=== PATIENT | female | born 1935 | race Caucasian/White ===

== ENCOUNTER 2020-03-21 17:59 | Inpatient (IN) ==
[2020-03-21] MEDS ORDERED: NS 0.9% 1000 ml BAG 1,000 ML IV ONE (18:08)
[2020-03-21] MEDS ORDERED: Ondansetron 4 mg VIAL 2 MG/ML 2 ml VIAL IV ONE ×2 (18:25→23:40)
[2020-03-21 18:58] LABS: ABS Basophils 0.1 10^3/ul (0-0.2); ABS Eosinophils 0.1 10^3/ul (0-0.6); ABS Lymphocytes 1.3 10^3/ul (1.0-4.8); ABS Monocytes 0.5 10^3/ul (0-0.8); ABS Neutrophils 10.1 10^3/ul (1.5-7.7); Eosinophil % 0.5 %; Hematocrit 40 % (35-47); Hemoglobin 13.1 g/dL (12.0-16.0); Lymphocyte % 10.7 %; Mean Corpuscular HGB Conc 33 g/dL (31-36); Mean Corpuscular Hemoglobin 29 pg (27-31); Mean Corpuscular Volume 86 fL (80-97); Mean Platelet Volume 6.8 fL (7.4-10.4); Platelet Count 511 10^3/uL (150-450); Red Blood Count 4.59 10^6 /uL (3.70-4.87); Red Cell Distribution Width 15 % (10-15)
[2020-03-21 19:06] LABS: Activated Partial Thrombo Time 30.2 seconds (26.0-38.0); INR 0.99 (0.82-1.09)
[2020-03-21 19:10] LABS: Influenza A Molecular Negative (Negative); Influenza B Molecular Negative (Negative)
[2020-03-21 19:16] LABS: BUN/Creatinine Ratio 12.4 (8-20); C Reactive Protein 11.42 mg/L (<8.01); Calcium 9.5 mg/dL (8.6-10.3); EGFR African American 65.9 (>60); EGFR Non-African American 54.5 (>60); Globulin 4.1 g/dL (2-4); Potassium 4.1 mmol/L (3.5-5.0); Total Bilirubin 0.4 mg/dL (0.2-1.0); Total Protein 8.1 g/dL (6.4-8.9)
[2020-03-21 19:17] LABS: Troponin I 0.02 ng/mL (<0.03)
[2020-03-21 19:22] LABS: Urine Appearance Clear; Urine Bilirubin Negative (Negative); Urine Blood Negative (Negative); Urine Color Straw; Urine Glucose Negative (Negative); Urine Ketones Negative (Negative); Urine Nitrite Negative (Negative); Urine Protein Negative (Negative); Urine Specific Gravity 1.008 (1.010-1.030); Urine Urobilinogen Negative (Negative)
[2020-03-21] MEDS ORDERED: Iodixanol (CONTRAST) 320 MG/ML 100 ML SDV IV ONE (23:52)
[2020-03-22 00:49] LABS: Magnesium 1.6 mg/dL (1.9-2.7)
[2020-03-22 01:03] LABS: TSH Ultra Thyroid Stim Horm 0.83 mcIU/mL (0.34-5.60)
[2020-03-22 01:31] LABS: ABS Basophils 0.1 10^3/ul (0-0.2); ABS Lymphocytes 1.3 10^3/ul (1.0-4.8); ABS Monocytes 0.6 10^3/ul (0-0.8); ABS Neutrophils 7.9 10^3/ul (1.5-7.7); Eosinophil % 0.1 %; Hematocrit 39 % (35-47); Hemoglobin 13.3 g/dL (12.0-16.0); Lymphocyte % 13.4 %; Mean Corpuscular HGB Conc 34 g/dL (31-36); Mean Corpuscular Hemoglobin 30 pg (27-31); Mean Corpuscular Volume 86 fL (80-97); Mean Platelet Volume 6.9 fL (7.4-10.4); Platelet Count 466 10^3/uL (150-450); Red Blood Count 4.51 10^6 /uL (3.70-4.87); Red Cell Distribution Width 15 % (10-15); White Blood Count 9.9 10^3/uL (3.5-10.8)
[2020-03-22] MEDS ORDERED: Labetalol IV 5 MG/ML 20 ml VIAL IV PUSH ONE (01:31)
[2020-03-22] MEDS ORDERED: Magnesium Sulf 4 GM/100 ML IV 4,000 MG/100 ML BAG IVPB ONE (01:35)
[2020-03-22 01:48] LABS: Anion Gap 6 mmol/L (2-11); BUN/Creatinine Ratio 11.6 (8-20); Blood Urea Nitrogen 10 mg/dL (6-24); CO2 Carbon Dioxide 27 mmol/L (22-32); Calcium 8.3 mg/dL (8.6-10.3); Chloride 99 mmol/L (101-111); EGFR African American 75.7 (>60); EGFR Non-African American 62.6 (>60); Glucose 111 mg/dL (70-100); Sodium 132 mmol/L (135-145)
[2020-03-22 01:57] LABS: Troponin I 0.05 ng/mL (<0.03)
[2020-03-22 04:55] LABS: Troponin I 0.03 ng/mL (<0.03)
[2020-03-22] MEDS: Heparin 5000 UNITS/ML 1 mL VIAL SUBCUT SCH ×3 (05:34→21:43)
[2020-03-22] MEDS: PTO:FLUTICASONE/UMECLIDIN/VILANTER 1 PUFF MDI INH SCH (07:04)
[2020-03-22] MEDS: Aspirin EC 325 mg TAB.EC PO SCH (09:30)
[2020-03-22] MEDS ORDERED: NS 0.9% 1000 ml BAG 1,000 ML IV SCH (11:45)
[2020-03-22] MEDS: Ondansetron 4 mg VIAL 2 MG/ML 2 ml VIAL IV PRN (17:41)
[2020-03-23] MEDS: Ondansetron 4 mg VIAL 2 MG/ML 2 ml VIAL IV PRN (00:55)
[2020-03-23] MEDS: Heparin 5000 UNITS/ML 1 mL VIAL SUBCUT SCH ×3 (05:41→20:36)
[2020-03-23 06:16] LABS: ABS Basophils 0.1 10^3/ul (0-0.2); ABS Eosinophils 0.1 10^3/ul (0-0.6); ABS Lymphocytes 1.6 10^3/ul (1.0-4.8); ABS Monocytes 0.7 10^3/ul (0-0.8); ABS Neutrophils 5.9 10^3/ul (1.5-7.7); Eosinophil % 0.8 %; Hematocrit 36 % (35-47); Hemoglobin 12.1 g/dL (12.0-16.0); Lymphocyte % 18.8 %; Mean Corpuscular HGB Conc 34 g/dL (31-36); Mean Corpuscular Hemoglobin 29 pg (27-31); Mean Corpuscular Volume 87 fL (80-97); Mean Platelet Volume 6.8 fL (7.4-10.4); Platelet Count 493 10^3/uL (150-450); Red Blood Count 4.19 10^6 /uL (3.70-4.87); Red Cell Distribution Width 15 % (10-15); White Blood Count 8.3 10^3/uL (3.5-10.8)
[2020-03-23 06:32] LABS: BUN/Creatinine Ratio 14.7 (8-20); Calcium 8.6 mg/dL (8.6-10.3); EGFR African American 57.6 (>60); EGFR Non-African American 47.6 (>60); Potassium 4.4 mmol/L (3.5-5.0)
[2020-03-23] MEDS: PTO:FLUTICASONE/UMECLIDIN/VILANTER 1 PUFF MDI INH SCH (08:36)
[2020-03-23] MEDS ORDERED: Albuterol/Ipratropium NEB.SOL (2.5/0.5 MG) 3 ML NEB.SOLN INH PRN (10:29)
[2020-03-23] MEDS: Aspirin EC 325 mg TAB.EC PO SCH (11:16)
[2020-03-23] MEDS ORDERED: Lactated Ringers 1000 ml BAG 1,000 ML IV ONE (14:30)
[2020-03-24] MEDS: Heparin 5000 UNITS/ML 1 mL VIAL SUBCUT SCH ×2 (05:49→14:28)
[2020-03-24 06:32] LABS: ABS Basophils 0.1 10^3/ul (0-0.2); ABS Eosinophils 0.1 10^3/ul (0-0.6); ABS Lymphocytes 1.5 10^3/ul (1.0-4.8); ABS Monocytes 0.7 10^3/ul (0-0.8); ABS Neutrophils 5.9 10^3/ul (1.5-7.7); Eosinophil % 1.6 %; Hematocrit 37 % (35-47); Hemoglobin 12.3 g/dL (12.0-16.0); Lymphocyte % 17.9 %; Mean Corpuscular HGB Conc 33 g/dL (31-36); Mean Corpuscular Hemoglobin 29 pg (27-31); Mean Corpuscular Volume 87 fL (80-97); Mean Platelet Volume 7.1 fL (7.4-10.4); Platelet Count 458 10^3/uL (150-450); Red Blood Count 4.23 10^6 /uL (3.70-4.87); Red Cell Distribution Width 15 % (10-15); White Blood Count 8.3 10^3/uL (3.5-10.8)
[2020-03-24 06:51] LABS: BUN/Creatinine Ratio 14.3 (8-20); Calcium 8.7 mg/dL (8.6-10.3); EGFR African American 70.9 (>60); EGFR Non-African American 58.6 (>60); Potassium 4.1 mmol/L (3.5-5.0)
[2020-03-24] MEDS: Aspirin EC 325 mg TAB.EC PO SCH (08:32)
[2020-03-24] MEDS: PTO:FLUTICASONE/UMECLIDIN/VILANTER 1 PUFF MDI INH SCH (08:39)
[2020-03-24] MEDS ORDERED: Heparin 5000 UNITS/ML 1 mL VIAL SUBCUT SCH (18:31)
[2020-03-24] MEDS ORDERED: Heparin 5000 UNITS/ML 1 mL VIAL ONE (19:53)
[2020-03-25 06:07] LABS: ABS Basophils 0.1 10^3/ul (0-0.2); ABS Eosinophils 0.2 10^3/ul (0-0.6); ABS Lymphocytes 1.7 10^3/ul (1.0-4.8); ABS Monocytes 0.9 10^3/ul (0-0.8); ABS Neutrophils 5.5 10^3/ul (1.5-7.7); Hematocrit 36 % (35-47); Lymphocyte % 20.5 %; Mean Corpuscular HGB Conc 34 g/dL (31-36); Mean Corpuscular Hemoglobin 29 pg (27-31); Mean Corpuscular Volume 87 fL (80-97); Mean Platelet Volume 7.2 fL (7.4-10.4); Platelet Count 464 10^3/uL (150-450); Red Cell Distribution Width 15 % (10-15); White Blood Count 8.3 10^3/uL (3.5-10.8)
[2020-03-25 06:26] LABS: BUN/Creatinine Ratio 20.2 (8-20); Calcium 8.9 mg/dL (8.6-10.3); EGFR African American 64.4 (>60); EGFR Non-African American 53.2 (>60)
[2020-03-25] MEDS: PTO:FLUTICASONE/UMECLIDIN/VILANTER 1 PUFF MDI INH SCH (08:27)
[2020-03-25] MEDS: Aspirin EC 325 mg TAB.EC PO SCH (09:16)
[2020-03-25] MEDS ORDERED: Midazolam 2 mg/2 ml VIAL 1 mg/ml 2 ml VIAL (2 mg) ONE (09:33)
[2020-03-25] MEDS ORDERED: fentaNYL 250 mcg/5 ml 50 MCG/ML 5 ml VIAL (250 MCG) ONE (09:33)
[2020-03-25] MEDS ORDERED: Lidocaine 2% PF 5 ML VIAL ONE ×2 (09:33→14:15)
[2020-03-25] MEDS ORDERED: Propofol 10 MG/ML 20 ML BTL ONE (09:33)
[2020-03-25] MEDS ORDERED: Rocuronium 50 mg VIAL 10 mg/ml 5 ml VIAL (50 mg) ONE (09:34)
[2020-03-25] MEDS ORDERED: Remifentanil 2 MG VIAL ONE (10:11)
[2020-03-25] MEDS ORDERED: Famotidine IV 10 MG/ML 2 ml VIAL (20 mg) IV SLOW PU ONE (10:33)
[2020-03-25] MEDS ORDERED: Sodium Citrate/Citric Acid LIQ 15 ML UDC PO ONE (10:33)
[2020-03-25] MEDS ORDERED: EPHEDrine (Pressors) 50 MG/ML VIAL ONE (11:40)
[2020-03-25] MEDS ORDERED: Sodium Citrate/Citric Acid LIQ 15 ML UDC ONE (12:47)
[2020-03-25] MEDS ORDERED: Famotidine IV 10 MG/ML 2 ml VIAL (20 mg) ONE (12:47)
[2020-03-25] MEDS ORDERED: Benzocaine/Butamben/Tetracain (CETACAINE - SINGLE USE) 5 gm TOPICAL ONE (12:52)
[2020-03-25] MEDS ORDERED: Acetaminophen IV 1 GM/100ML 1,000 MG/100 ML VIAL IVPB PRN (13:57)
[2020-03-25] MEDS ORDERED: Naloxone 0.4 mg VIAL 0.4 mg/ml 1 ml VIAL IV PRN (13:57)
[2020-03-25] MEDS ORDERED: HYDROmorphone 1 MG/1 ML SYRINGE IV PRN (13:57)
[2020-03-25] MEDS ORDERED: fentaNYL 100 mcg/2 ml 50 MCG/ML VIAL IV PRN (13:57)
[2020-03-25] MEDS ORDERED: Metoprolol Tartrate 5 mg VIAL 5 ml VIAL (1 mg/ml) ONE (15:13)
[2020-03-25] MEDS ORDERED: Metoprolol Tartrate 5 mg VIAL 5 ml VIAL (1 mg/ml) IV PRN (15:24)
[2020-03-25] MEDS ORDERED: Benzocaine/Menthol LOZ PO PRN (15:24)
[2020-03-25] MEDS ORDERED: Metoprolol Tartrate 5 mg VIAL 5 ml VIAL (1 mg/ml) IV ONE (15:41)
[2020-03-25] MEDS ORDERED: Senna TAB 8.6 mg TAB PO PRN (20:28)
[2020-03-25] MEDS ORDERED: Polyethylene Glycol 3350 17 GM PACKET PO PRN (20:29)
[2020-03-26 07:03] LABS: ABS Basophils 0.1 10^3/ul (0-0.2); ABS Eosinophils 0.1 10^3/ul (0-0.6); ABS Lymphocytes 1.7 10^3/ul (1.0-4.8); ABS Monocytes 0.9 10^3/ul (0-0.8); ABS Neutrophils 8.6 10^3/ul (1.5-7.7); Eosinophil % 0.6 %; Hematocrit 39 % (35-47); Hemoglobin 12.9 g/dL (12.0-16.0); Lymphocyte % 15.2 %; Mean Corpuscular HGB Conc 33 g/dL (31-36); Mean Corpuscular Hemoglobin 29 pg (27-31); Mean Corpuscular Volume 87 fL (80-97); Mean Platelet Volume 7.2 fL (7.4-10.4); Platelet Count 489 10^3/uL (150-450); Red Blood Count 4.49 10^6 /uL (3.70-4.87); Red Cell Distribution Width 15 % (10-15); White Blood Count 11.4 10^3/uL (3.5-10.8)
[2020-03-26 07:21] LABS: BUN/Creatinine Ratio 18.5 (8-20); Calcium 9.1 mg/dL (8.6-10.3); EGFR Non-African American 57.9 (>60); Magnesium 1.5 mg/dL (1.9-2.7); Potassium 3.8 mmol/L (3.5-5.0)
[2020-03-26] MEDS ORDERED: Magnesium Sulfate IV 3 GM in NS 0.9% 100 ml BAG 100 ML IVPB ONE (08:00)
[2020-03-26] MEDS: Aspirin EC 325 mg TAB.EC PO SCH (08:43)
[2020-03-26] MEDS: PTO:FLUTICASONE/UMECLIDIN/VILANTER 1 PUFF MDI INH SCH (09:56)
[2020-03-26] MEDS ORDERED: Iodixanol (CONTRAST) 320 MG/ML 100 ML SDV IV ONE (12:39)
[2020-03-26] MEDS ORDERED: NS 0.9% 500 ml BAG 500 ML IV ONE (15:29)
[2020-03-26] MEDS ORDERED: NS 0.9% 1000 ml BAG 1,000 ML IV ONE (15:34)
[2020-03-27 07:49] LABS: ABS Basophils 0.1 10^3/ul (0-0.2); ABS Eosinophils 0.3 10^3/ul (0-0.6); ABS Lymphocytes 1.4 10^3/ul (1.0-4.8); ABS Monocytes 0.7 10^3/ul (0-0.8); ABS Neutrophils 5.4 10^3/ul (1.5-7.7); Eosinophil % 3.3 %; Hematocrit 36 % (35-47); Hemoglobin 12.1 g/dL (12.0-16.0); Mean Corpuscular HGB Conc 33 g/dL (31-36); Mean Corpuscular Hemoglobin 29 pg (27-31); Mean Corpuscular Volume 87 fL (80-97); Mean Platelet Volume 7.3 fL (7.4-10.4); Platelet Count 433 10^3/uL (150-450); Red Cell Distribution Width 15 % (10-15); White Blood Count 7.8 10^3/uL (3.5-10.8)
[2020-03-27 08:03] LABS: BUN/Creatinine Ratio 20.5 (8-20); Calcium 8.6 mg/dL (8.6-10.3); EGFR African American 73.7 (>60); EGFR Non-African American 60.9 (>60); Magnesium 1.9 mg/dL (1.9-2.7); Potassium 3.8 mmol/L (3.5-5.0)
[2020-03-27] MEDS: PTO:FLUTICASONE/UMECLIDIN/VILANTER 1 PUFF MDI INH SCH (08:05)
[2020-03-27] MEDS ORDERED: Magnesium Sulfate IV 1GM/100ML 1 GM/100 ML BAG IV ONE (08:10)
[2020-03-27] MEDS ORDERED: methylPREDNISolone 125 mg 2 ML VIAL IV ONE (09:11)
[2020-03-27] MEDS: Aspirin EC 325 mg TAB.EC PO SCH (09:32)
[2020-03-27] MEDS ORDERED: Albuterol/Ipratropium NEB.SOL (2.5/0.5 MG) 3 ML NEB.SOLN INH SCH (14:00)
[2020-03-27] MEDS: Albuterol/Ipratropium NEB.SOL (2.5/0.5 MG) 3 ML NEB.SOLN INH SCH ×3 (17:35→20:17)
[2020-03-27] MEDS ORDERED: Albuterol HFA INHALER 8 gm MDI INH SCH (19:00)
[2020-03-28] MEDS: Albuterol/Ipratropium NEB.SOL (2.5/0.5 MG) 3 ML NEB.SOLN INH SCH ×5 (00:06→14:52)
[2020-03-28] MEDS ORDERED: Senna TAB 8.6 mg TAB PO PRN (06:11)
[2020-03-28] MEDS ORDERED: Polyethylene Glycol 3350 17 GM PACKET PO PRN (06:11)
[2020-03-28 06:16] LABS: Hematocrit 32 % (35-47); Hemoglobin 10.7 g/dL (12.0-16.0); Mean Corpuscular HGB Conc 33 g/dL (31-36); Mean Corpuscular Hemoglobin 28 pg (27-31); Mean Corpuscular Volume 86 fL (80-97); Mean Platelet Volume 7.8 fL (7.4-10.4); Platelet Count 440 10^3/uL (150-450); Red Blood Count 3.77 10^6 /uL (3.70-4.87); Red Cell Distribution Width 14 % (10-15); White Blood Count 14.5 10^3/uL (3.5-10.8)
[2020-03-28 06:21] LABS: ABS Basophils 0.1 10^3/ul (0-0.2); ABS Lymphocytes 1.5 10^3/ul (1.0-4.8); ABS Monocytes 1.6 10^3/ul (0-0.8); ABS Neutrophils 11.3 10^3/ul (1.5-7.7); Eosinophil % 0.1 %; Lymphocyte % 10.5 %
[2020-03-28 06:38] LABS: BUN/Creatinine Ratio 30.1 (8-20); Calcium 9.3 mg/dL (8.6-10.3); EGFR African American 50.1 (>60); EGFR Non-African American 41.4 (>60); Magnesium 2.1 mg/dL (1.9-2.7)
[2020-03-28] MEDS: PTO:FLUTICASONE/UMECLIDIN/VILANTER 1 PUFF MDI INH SCH (07:45)
[2020-03-28] MEDS: Magnesium Hydroxide LIQ 30 ML UDC PO ONE ×2 (09:46→09:52)
[2020-03-28] MEDS: Aspirin EC 325 mg TAB.EC PO SCH (09:46)
[2020-03-28] MEDS: Enoxaparin 30 MG/0.3 ML SYR SUBCUT SCH (16:24)
[2020-03-29 07:15] LABS: ABS Lymphocytes 1.1 10^3/ul (1.0-4.8); ABS Monocytes 0.4 10^3/ul (0-0.8); ABS Neutrophils 9.1 10^3/ul (1.5-7.7); Hematocrit 31 % (35-47); Hemoglobin 10.7 g/dL (12.0-16.0); Lymphocyte % 10.7 %; Mean Corpuscular HGB Conc 34 g/dL (31-36); Mean Corpuscular Hemoglobin 30 pg (27-31); Mean Corpuscular Volume 86 fL (80-97); Mean Platelet Volume 7.5 fL (7.4-10.4); Platelet Count 424 10^3/uL (150-450); Red Blood Count 3.63 10^6 /uL (3.70-4.87); Red Cell Distribution Width 15 % (10-15); White Blood Count 10.7 10^3/uL (3.5-10.8)
[2020-03-29 07:37] LABS: Calcium 8.9 mg/dL (8.6-10.3); EGFR African American 65.9 (>60); EGFR Non-African American 54.5 (>60); Potassium 4.6 mmol/L (3.5-5.0)
[2020-03-29] MEDS: PTO:FLUTICASONE/UMECLIDIN/VILANTER 1 PUFF MDI INH SCH (08:11)
[2020-03-29] MEDS: Aspirin EC 325 mg TAB.EC PO SCH (10:00)
[2020-03-29] MEDS ORDERED: Albuterol/Ipratropium NEB.SOL (2.5/0.5 MG) 3 ML NEB.SOLN INH ONE ×3 (15:16→19:00)
[2020-03-29] MEDS: Enoxaparin 30 MG/0.3 ML SYR SUBCUT SCH (16:38)
[2020-03-30 06:58] LABS: ABS Lymphocytes 1.4 10^3/ul (1.0-4.8); ABS Monocytes 0.8 10^3/ul (0-0.8); ABS Neutrophils 7.7 10^3/ul (1.5-7.7); Hematocrit 32 % (35-47); Hemoglobin 10.6 g/dL (12.0-16.0); Lymphocyte % 13.8 %; Mean Corpuscular HGB Conc 34 g/dL (31-36); Mean Corpuscular Hemoglobin 29 pg (27-31); Mean Corpuscular Volume 87 fL (80-97); Mean Platelet Volume 7.6 fL (7.4-10.4); Platelet Count 420 10^3/uL (150-450); Red Blood Count 3.62 10^6 /uL (3.70-4.87); Red Cell Distribution Width 15 % (10-15); White Blood Count 9.8 10^3/uL (3.5-10.8)
[2020-03-30 07:17] LABS: Calcium 9.1 mg/dL (8.6-10.3); EGFR African American 71.8 (>60); EGFR Non-African American 59.4 (>60); Magnesium 1.9 mg/dL (1.9-2.7); Potassium 4.7 mmol/L (3.5-5.0)
[2020-03-30] MEDS: PTO:FLUTICASONE/UMECLIDIN/VILANTER 1 PUFF MDI INH SCH (07:52)
[2020-03-30] MEDS ORDERED: Albuterol/Ipratropium NEB.SOL (2.5/0.5 MG) 3 ML NEB.SOLN INH ONE (08:58)
[2020-03-30] MEDS ORDERED: Albuterol HFA INHALER 8 gm MDI INH PRN (09:00)
[2020-03-30] MEDS: Aspirin EC 325 mg TAB.EC PO SCH (09:34)
[2020-03-30] MEDS: Enoxaparin 30 MG/0.3 ML SYR SUBCUT SCH (16:17)
[2020-03-31] MEDS: PTO:FLUTICASONE/UMECLIDIN/VILANTER 1 PUFF MDI INH SCH (08:09)
[2020-03-31 08:33] VITALS: BP 148/58
[2020-03-31] MEDS: Aspirin EC 325 mg TAB.EC PO SCH (08:43)
[2020-04-10 14:51] LABS: LNGPR Specimen Cells; LNGPR Tissue ID CN20-1340-3
== END 2020-03-31 12:17 | DRG 180 ==
LOC: MED 17:59 → ED 17:59 → OBSVTOIN 03-22 00:01 → MEDTELE 03-22 14:41
PROVIDERS: ADMIT Internal Medicine; ATTEND Internal Medicine